=== PATIENT | female | born 1960 | race African-American/Black ===

== ENCOUNTER 2017-09-18 11:05 | Inpatient (IN) ==
[2017-09-21 12:22] VITALS: BP 150/79
== END 2017-09-21 14:42 | disposition home or self-care (01) | DRG 720 ==
LOC: N.ED 11:05 → N.EDINP 13:12 → SUATTDRO 13:12 → N.2E 15:40
PROVIDERS: ADMIT Internal Medicine Nephrology; ATTEND Hospitalist

== ENCOUNTER 2020-07-10 02:42 | Inpatient (IN) ==
[2020-07-10 03:16] LABS: Basophils % 0.4 % (0.0-0.8); Eosinophils # 0.2 10*3/uL (0.0-0.87); Eosinophils % 2.3 % (0.00-10.9); Hematocrit 36.4 VOL% (35.7-47.0); Hemoglobin 11.3 GM/DL (12.0-16.0); Immature Granulocytes % 0.4 %; Immature Granulocytes Absolute 0.04 #; Lymphocytes # 2.8 10*3/uL (1.4-4.0); Lymphocytes % 29.4 % (21.3-54.2); Mean Corpuscular Volume 97.8 FL (87-102); Mean Platelet Volume 10.4 FL (9.6-12.0); Monocytes % 6.4 % (1.7-12.7); Neutrophils % 61.1 % (38.7-73.9); Platelet Count 354 T/CUMM (130-400); Red Blood Count 3.72 MC/CUMM (3.8-5.5); Red Cell Distribution Width 15.6 % (9.3-17.3); White Blood Count 9.5 T/CUMM (4-12)
[2020-07-10 03:17] LABS: ABG Base Excess -1.6 MMOL/L (-2.5-2.5); ABG Oxygen Saturation 95.7 % (95-100); ABG PH 7.375 (7.35-7.45); ABG PO2 83.5 MM HG (80-95)
[2020-07-10] MEDS ORDERED: FUROSEMIDE 40 MG/4 ML VIAL IV STA (03:22)
[2020-07-10] MEDS ORDERED: methylPREDNISolone SOD SUC 125 MG/2 ML VIAL IV STA (03:23)
[2020-07-10 03:29] LABS: PT Patient Result 10.9 SECS (9.8-11.9)
[2020-07-10 03:43] LABS: Albumin 3.4 G/DL (3.4-5.0); Bilirubin,Total 0.9 MG/DL (0.2-1.0); Calcium 8.9 MG/DL (8.5-10.1); Osmolality,Calculated 279.5 MOS/KG (273-304); Potassium 3.6 MMOL/L (3.5-5.1); Total Protein 7.2 G/DL (6.4-8.2)
[2020-07-10] MEDS ORDERED: SODIUM CHLORIDE 0.9% 500 ML IV STA (03:46)
[2020-07-10] MEDS ORDERED: ALBUTEROL/IPRATROPIUM 3 ML NEB RESP TX STA (03:50)
[2020-07-10] MEDS ORDERED: LEVOFLOXACIN INJ 750 MG/150 ML PREMIX IV STA (03:50)
[2020-07-10] MEDS ORDERED: LABETALOL 20 MG/4 ML SYRINGE IV STA (04:39)
[2020-07-10] MEDS ORDERED: diphenhydrAMINE 50 MG/1 ML VIAL IV STA (04:48)
[2020-07-10] MEDS ORDERED: ONDANSETRON 4 MG/2 ML VIAL IV ONE (04:48)
[2020-07-10] MEDS ORDERED: hydrALAZINE 20 MG/1 ML VIAL IV PRN (05:20)
[2020-07-10] MEDS ORDERED: DEXTROSE 50% 25 GM/50 ML VIAL IV PRN (05:20)
[2020-07-10] MEDS ORDERED: NICOTINE 21 MG/24 HR PATCH TRANSDERM PRN (05:20)
[2020-07-10] MEDS ORDERED: guaiFENesin/DM ER 600-30 MG TABLET PO PRN (05:20)
[2020-07-10] MEDS ORDERED: GLUCAGON 1 MG VIAL IM PRN (05:20)
[2020-07-10] MEDS ORDERED: diphenhydrAMINE CAP 25 MG CAPSULE PO PRN (05:20)
[2020-07-10] MEDS ORDERED: ONDANSETRON 4 MG/2 ML VIAL IV PRN (05:20)
[2020-07-10] MEDS ORDERED: ENOXAPARIN 150 MG/ML SYRINGE SUBCUT STA (06:54)
[2020-07-10] MEDS ORDERED: ENOXAPARIN 30 MG/0.3 ML SYRINGE ONE (07:15)
[2020-07-10] MEDS ORDERED: ENOXAPARIN 120 MG/0.8 ML SYRINGE SUBCUT ONE (07:15)
[2020-07-10] MEDS: AZITHROMYCIN INJ 500 MG in SODIUM CHLORIDE 0.9% 250 ML IV SCH (07:25)
[2020-07-10] MEDS: FUROSEMIDE 40 MG/4 ML VIAL IV SCH ×2 (08:00→16:16)
[2020-07-10] MEDS: ALBUTEROL/IPRATROPIUM 3 ML NEB RESP TX SCH ×3 (08:40→19:55)
[2020-07-10] MEDS: PIPERACILLIN/TAZOBACTAM 3,375 MG in SODIUM CHLORIDE 0.9% 100 ML IV SCH ×2 (08:49→21:07)
[2020-07-10] MEDS ORDERED: ENOXAPARIN 40 MG/0.4 ML SYRINGE SUBCUT SCH (09:00)
[2020-07-10] MEDS: methylPREDNISolone SOD SUC 40 MG/1 ML VIAL IV SCH ×2 (09:03→21:07)
[2020-07-10] MEDS: INSULIN REGULAR 100 UNIT/ML SUBCUT SCH ×4 (09:03→22:22)
[2020-07-10] MEDS: MORPHINE 4 MG/1 ML VIAL IV PRN (10:06)
[2020-07-10] MEDS: GABAPENTIN 300 MG CAPSULE PO SCH ×2 (13:18→21:06)
[2020-07-10] MEDS: CYCLOBENZAPRINE 10 MG TABLET PO PRN (13:19)
[2020-07-10] MEDS: lisinopriL 10 MG TABLET PO SCH (13:36)
[2020-07-10] MEDS: ATAZANAVIR 300 MG PO SCH (16:09)
[2020-07-10] MEDS: CLINDAMYCIN INJ 600 MG in PREMIX 1 EACH IV SCH (16:16)
[2020-07-10] MEDS: PRIMAQUINE PHOSPHATE 26.3 MG TABLET PO SCH (17:01)
[2020-07-10] MEDS: ENOXAPARIN 40 MG/0.4 ML SYRINGE SUBCUT SCH (18:08)
[2020-07-10] MEDS: MONTELUKAST 10 MG TABLET PO SCH (21:06)
[2020-07-10] MEDS: ROSUVASTATIN 20 MG TABLET PO SCH (21:06)
[2020-07-11] MEDS: CLINDAMYCIN INJ 600 MG in PREMIX 1 EACH IV SCH ×5 (00:14→23:56)
[2020-07-11] MEDS: ALBUTEROL/IPRATROPIUM 3 ML NEB RESP TX SCH ×4 (01:34→20:12)
[2020-07-11] MEDS: PIPERACILLIN/TAZOBACTAM 3,375 MG in SODIUM CHLORIDE 0.9% 100 ML IV SCH ×3 (05:22→22:16)
[2020-07-11 06:12] LABS: Basophils % 0.1 % (0.0-0.8); Hematocrit 36.1 VOL% (35.7-47.0); Hemoglobin 11.6 GM/DL (12.0-16.0); Immature Granulocytes % 0.6 %; Immature Granulocytes Absolute 0.09 #; Lymphocytes # 0.9 10*3/uL (1.4-4.0); Lymphocytes % 5.8 % (21.3-54.2); Mean Corpuscular HGB Conc 32.1 GM/DL (32-36); Mean Corpuscular Volume 94.5 FL (87-102); Mean Platelet Volume 10.4 FL (9.6-12.0); Monocytes % 3.7 % (1.7-12.7); Neutrophils % 89.8 % (38.7-73.9); Platelet Count 336 T/CUMM (130-400); Red Blood Count 3.82 MC/CUMM (3.8-5.5); Red Cell Distribution Width 15.4 % (9.3-17.3); White Blood Count 15.9 T/CUMM (4-12)
[2020-07-11] MEDS ORDERED: PANTOPRAZOLE 40 MG TABLET PO SCH (06:30)
[2020-07-11 06:41] LABS: Calcium 8.9 MG/DL (8.5-10.1); Osmolality,Calculated 277.2 MOS/KG (273-304); Potassium 3.7 MMOL/L (3.5-5.1)
[2020-07-11] MEDS: AZITHROMYCIN INJ 500 MG in SODIUM CHLORIDE 0.9% 250 ML IV SCH (06:42)
[2020-07-11] MEDS: ATAZANAVIR 300 MG PO SCH (09:09)
[2020-07-11] MEDS: PRIMAQUINE PHOSPHATE 26.3 MG TABLET PO SCH (09:09)
[2020-07-11] MEDS: GABAPENTIN 300 MG CAPSULE PO SCH ×2 (09:09→20:45)
[2020-07-11] MEDS: methylPREDNISolone SOD SUC 40 MG/1 ML VIAL IV SCH ×2 (09:13→20:46)
[2020-07-11] MEDS: INSULIN REGULAR 100 UNIT/ML SUBCUT SCH ×4 (09:29→23:11)
[2020-07-11] MEDS: lisinopriL 10 MG TABLET PO SCH (09:32)
[2020-07-11] MEDS: PANTOPRAZOLE 40 MG VIAL IV SCH (11:23)
[2020-07-11] MEDS: FUROSEMIDE 40 MG/4 ML VIAL IV SCH ×2 (11:26→16:41)
[2020-07-11] MEDS: ENOXAPARIN 40 MG/0.4 ML SYRINGE SUBCUT SCH (17:46)
[2020-07-11] MEDS: ROSUVASTATIN 20 MG TABLET PO SCH (20:40)
[2020-07-11] MEDS: MONTELUKAST 10 MG TABLET PO SCH (20:45)
[2020-07-11] MEDS: INSULIN GLARGINE 100 UNIT/ML SUBCUT SCH (21:30)
[2020-07-12] MEDS: ALBUTEROL/IPRATROPIUM 3 ML NEB RESP TX SCH ×4 (01:00→20:24)
[2020-07-12] MEDS: MORPHINE 4 MG/1 ML VIAL IV PRN ×2 (02:29→09:15)
[2020-07-12] MEDS: AZITHROMYCIN INJ 500 MG in SODIUM CHLORIDE 0.9% 250 ML IV SCH (06:07)
[2020-07-12] MEDS: PIPERACILLIN/TAZOBACTAM 3,375 MG in SODIUM CHLORIDE 0.9% 100 ML IV SCH ×3 (06:10→21:57)
[2020-07-12 06:51] LABS: Basophils % 0.1 % (0.0-0.8); Hematocrit 36.2 VOL% (35.7-47.0); Hemoglobin 11.2 GM/DL (12.0-16.0); Immature Granulocytes Absolute 0.18 #; Lymphocytes # 0.8 10*3/uL (1.4-4.0); Lymphocytes % 4.6 % (21.3-54.2); Mean Corpuscular HGB Conc 30.9 GM/DL (32-36); Mean Corpuscular Volume 96.8 FL (87-102); Mean Platelet Volume 10.8 FL (9.6-12.0); Monocytes % 4.6 % (1.7-12.7); Neutrophils % 89.7 % (38.7-73.9); Platelet Count 365 T/CUMM (130-400); Red Blood Count 3.74 MC/CUMM (3.8-5.5); Red Cell Distribution Width 15.5 % (9.3-17.3); White Blood Count 17.2 T/CUMM (4-12)
[2020-07-12 07:04] LABS: Calcium 8.4 MG/DL (8.5-10.1); Osmolality,Calculated 288.7 MOS/KG (273-304); Potassium 3.7 MMOL/L (3.5-5.1)
[2020-07-12] MEDS: CLINDAMYCIN INJ 600 MG in PREMIX 1 EACH IV SCH ×2 (07:09→16:59)
[2020-07-12 07:31] LABS: Hypochromasia Slight; Lymphocytes 2 % (20-55); Platelet Estimate Adequate; Segmented Neutrophils 94 % (50-85); Total Cells Counted 100
[2020-07-12 07:32] LABS: Microcytosis Slight
[2020-07-12] MEDS: GABAPENTIN 300 MG CAPSULE PO SCH ×2 (09:12→21:51)
[2020-07-12] MEDS: PRIMAQUINE PHOSPHATE 26.3 MG TABLET PO SCH (09:13)
[2020-07-12] MEDS: ATAZANAVIR 300 MG PO SCH (09:13)
[2020-07-12] MEDS: lisinopriL 10 MG TABLET PO SCH (09:13)
[2020-07-12] MEDS: methylPREDNISolone SOD SUC 40 MG/1 ML VIAL IV SCH ×2 (09:18→21:53)
[2020-07-12] MEDS: FUROSEMIDE 40 MG/4 ML VIAL IV SCH ×2 (09:22→16:59)
[2020-07-12] MEDS: PANTOPRAZOLE 40 MG VIAL IV SCH (09:25)
[2020-07-12] MEDS: INSULIN REGULAR 100 UNIT/ML SUBCUT SCH ×4 (09:25→21:53)
[2020-07-12] MEDS: DOCUSATE SODIUM 100 MG CAPSULE PO SCH ×2 (17:00→21:52)
[2020-07-12] MEDS: ENOXAPARIN 40 MG/0.4 ML SYRINGE SUBCUT SCH (17:01)
[2020-07-12] MEDS: MONTELUKAST 10 MG TABLET PO SCH (21:51)
[2020-07-12] MEDS: guaiFENesin/DM ER 600-30 MG TABLET PO SCH (21:52)
[2020-07-12] MEDS: POLYETHYLENE GLYCOL POWDER 17 GM PACK PO SCH (21:52)
[2020-07-12] MEDS: SENNA 8.6 MG TABLET PO SCH (21:52)
[2020-07-12] MEDS: ROSUVASTATIN 20 MG TABLET PO SCH (21:52)
[2020-07-12] MEDS: INSULIN GLARGINE 100 UNIT/ML SUBCUT SCH (21:53)
[2020-07-13] MEDS: MORPHINE 4 MG/1 ML VIAL IV PRN (00:03)
[2020-07-13] MEDS: CLINDAMYCIN INJ 600 MG in PREMIX 1 EACH IV SCH ×3 (00:06→15:30)
[2020-07-13] MEDS: CYCLOBENZAPRINE 10 MG TABLET PO PRN (00:10)
[2020-07-13] MEDS: ALBUTEROL/IPRATROPIUM 3 ML NEB RESP TX SCH ×4 (03:41→19:44)
[2020-07-13] MEDS: PIPERACILLIN/TAZOBACTAM 3,375 MG in SODIUM CHLORIDE 0.9% 100 ML IV SCH ×3 (04:04→21:57)
[2020-07-13 05:15] LABS: Basophils % 0.1 % (0.0-0.8); Hematocrit 35.4 VOL% (35.7-47.0); Immature Granulocytes % 0.9 %; Immature Granulocytes Absolute 0.13 #; Lymphocytes # 0.9 10*3/uL (1.4-4.0); Lymphocytes % 6.4 % (21.3-54.2); Mean Corpuscular HGB Conc 31.1 GM/DL (32-36); Mean Corpuscular Volume 96.5 FL (87-102); Mean Platelet Volume 10.9 FL (9.6-12.0); Monocytes % 2.5 % (1.7-12.7); Neutrophils % 90.1 % (38.7-73.9); Platelet Count 337 T/CUMM (130-400); Red Blood Count 3.67 MC/CUMM (3.8-5.5); Red Cell Distribution Width 15.2 % (9.3-17.3)
[2020-07-13 05:33] LABS: Calcium 8.5 MG/DL (8.5-10.1); Osmolality,Calculated 287.8 MOS/KG (273-304); Potassium 3.7 MMOL/L (3.5-5.1)
[2020-07-13] MEDS: DOCUSATE SODIUM 100 MG CAPSULE PO SCH ×2 (08:39→21:17)
[2020-07-13] MEDS: GABAPENTIN 300 MG CAPSULE PO SCH ×2 (08:39→21:17)
[2020-07-13] MEDS: lisinopriL 10 MG TABLET PO SCH (08:39)
[2020-07-13] MEDS: guaiFENesin/DM ER 600-30 MG TABLET PO SCH ×2 (08:39→21:17)
[2020-07-13] MEDS: POLYETHYLENE GLYCOL POWDER 17 GM PACK PO SCH ×2 (08:39→21:16)
[2020-07-13] MEDS: methylPREDNISolone SOD SUC 40 MG/1 ML VIAL IV SCH ×2 (08:41→21:18)
[2020-07-13] MEDS: PANTOPRAZOLE 40 MG VIAL IV SCH (08:42)
[2020-07-13] MEDS: FUROSEMIDE 40 MG/4 ML VIAL IV SCH ×2 (08:43→15:27)
[2020-07-13] MEDS: ATAZANAVIR 300 MG PO SCH (08:47)
[2020-07-13] MEDS: INSULIN REGULAR 100 UNIT/ML SUBCUT SCH ×4 (08:47→21:18)
[2020-07-13] MEDS: PRIMAQUINE PHOSPHATE 26.3 MG TABLET PO SCH (09:34)
[2020-07-13] MEDS: AZITHROMYCIN INJ 500 MG in SODIUM CHLORIDE 0.9% 250 ML IV SCH (09:34)
[2020-07-13] MEDS: ENOXAPARIN 40 MG/0.4 ML SYRINGE SUBCUT SCH (17:44)
[2020-07-13] MEDS ORDERED: INSULIN GLARGINE 100 UNIT/ML SUBCUT SCH (21:00)
[2020-07-13] MEDS: MONTELUKAST 10 MG TABLET PO SCH (21:16)
[2020-07-13] MEDS: SENNA 8.6 MG TABLET PO SCH (21:17)
[2020-07-13] MEDS: ROSUVASTATIN 20 MG TABLET PO SCH (21:17)
[2020-07-14] MEDS: ALBUTEROL/IPRATROPIUM 3 ML NEB RESP TX SCH ×2 (00:23→07:56)
[2020-07-14] MEDS: CLINDAMYCIN INJ 600 MG in PREMIX 1 EACH IV SCH ×2 (01:57→07:43)
[2020-07-14] MEDS: PIPERACILLIN/TAZOBACTAM 3,375 MG in SODIUM CHLORIDE 0.9% 100 ML IV SCH (05:31)
[2020-07-14 05:49] LABS: Basophils % 0.2 % (0.0-0.8); Hematocrit 35.2 VOL% (35.7-47.0); Hemoglobin 11.4 GM/DL (12.0-16.0); Immature Granulocytes % 1.2 %; Immature Granulocytes Absolute 0.14 #; Lymphocytes # 1.1 10*3/uL (1.4-4.0); Lymphocytes % 9.1 % (21.3-54.2); Mean Corpuscular HGB Conc 32.4 GM/DL (32-36); Mean Corpuscular Volume 93.1 FL (87-102); Mean Platelet Volume 10.9 FL (9.6-12.0); Monocytes % 3.9 % (1.7-12.7); Neutrophils % 85.6 % (38.7-73.9); Platelet Count 320 T/CUMM (130-400); Red Blood Count 3.78 MC/CUMM (3.8-5.5); White Blood Count 11.8 T/CUMM (4-12)
[2020-07-14 06:01] LABS: Calcium 8.6 MG/DL (8.5-10.1); Osmolality,Calculated 290.8 MOS/KG (273-304); Potassium 3.5 MMOL/L (3.5-5.1)
[2020-07-14] MEDS: FUROSEMIDE 40 MG/4 ML VIAL IV SCH (07:39)
[2020-07-14] MEDS: INSULIN REGULAR 100 UNIT/ML SUBCUT SCH ×2 (07:43→11:29)
[2020-07-14] MEDS: CYCLOBENZAPRINE 10 MG TABLET PO PRN (07:46)
[2020-07-14] MEDS: ATAZANAVIR 300 MG PO SCH (08:56)
[2020-07-14] MEDS: GABAPENTIN 300 MG CAPSULE PO SCH (08:57)
[2020-07-14] MEDS: POLYETHYLENE GLYCOL POWDER 17 GM PACK PO SCH (08:57)
[2020-07-14] MEDS: DOCUSATE SODIUM 100 MG CAPSULE PO SCH (08:57)
[2020-07-14] MEDS: guaiFENesin/DM ER 600-30 MG TABLET PO SCH (08:57)
[2020-07-14] MEDS: lisinopriL 10 MG TABLET PO SCH (08:57)
[2020-07-14] MEDS ORDERED: PANTOPRAZOLE 40 MG TABLET PO SCH (09:00)
[2020-07-14] MEDS: PRIMAQUINE PHOSPHATE 26.3 MG TABLET PO SCH (09:03)
[2020-07-14] MEDS: AZITHROMYCIN INJ 500 MG in SODIUM CHLORIDE 0.9% 250 ML IV SCH (09:05)
[2020-07-14] MEDS: methylPREDNISolone SOD SUC 40 MG/1 ML VIAL IV SCH (09:10)
[2020-07-14 11:45] VITALS: BP 106/58
[2020-07-14 11:47] LABS: Alanine Aminotransferase 35 U/L (13-56); Alkaline Phosphatase 53 U/L (45-117); Aspartate Amino Transferase 19 U/L (0-37); Bilirubin,Direct < 0.100 MG/DL (0.0-0.20); Bilirubin,Indirect 0.3 MG/DL (0.0-1.0); Total Protein 6.6 G/DL (6.4-8.2)
[2020-07-14] MEDS ORDERED: glipiZIDE 5 MG TABLET PO SCH (16:30)
[2020-07-15 11:08] LABS: Fungitell Quantitative Value < 31 pg/mL (<60 pg/mL)
== END 2020-07-14 14:01 | disposition home health service (06) | DRG 892 ==
LOC: EDBD → EDUNIT# → N.ED 02:42 → SUATTDRO 05:20 → N.EDINP 05:20 → N.TELES 10:34
PROVIDERS: ADMIT Internal Medicine; ATTEND Internal Medicine

== ENCOUNTER 2020-10-15 07:36 | Observation (INO) ==
[2020-10-15] MEDS ORDERED: MORPHINE 2 MG/1 ML SYRINGE IV ONE (08:09)
[2020-10-15] MEDS ORDERED: ONDANSETRON 4 MG/2 ML VIAL IV ONE (08:09)
[2020-10-15 08:32] LABS: Basophils % 0.5 % (0.0-0.8); Eosinophils # 0.2 10*3/uL (0.0-0.87); Eosinophils % 2.6 % (0.00-10.9); Hematocrit 35.6 VOL% (35.7-47.0); Hemoglobin 11.2 GM/DL (12.0-16.0); Immature Granulocytes % 0.3 %; Immature Granulocytes Absolute 0.02 #; Lymphocytes # 2.2 10*3/uL (1.4-4.0); Lymphocytes % 36.9 % (21.3-54.2); Mean Corpuscular HGB Conc 31.5 GM/DL (32-36); Mean Platelet Volume 11.2 FL (9.6-12.0); Neutrophils % 51.7 % (38.7-73.9); Platelet Count 320 T/CUMM (130-400); Red Blood Count 3.67 MC/CUMM (3.8-5.5); Red Cell Distribution Width 13.8 % (9.3-17.3); White Blood Count 5.9 T/CUMM (4-12)
[2020-10-15 08:40] LABS: INR 0.9; PT Patient Result 10.6 SECS (10.5-12.0)
[2020-10-15 08:46] LABS: Albumin 3.6 G/DL (3.4-5.0); Bilirubin,Total 1.9 MG/DL (0.20-1.00); Calcium 9.2 MG/DL (8.5-10.1); Osmolality,Calculated 279.5 MOS/KG (273-304); Potassium 3.5 MMOL/L (3.5-5.1); Total Protein 7.5 G/DL (6.4-8.2)
[2020-10-15] MEDS ORDERED: ASPIRIN 325 MG TABLET PO STA (09:26)
[2020-10-15] MEDS ORDERED: DEXTROSE 50% 25 GM/50 ML VIAL IV PRN ×2 (10:47)
[2020-10-15] MEDS ORDERED: ACETAMINOPHEN 325 MG TABLET PO PRN (10:47)
[2020-10-15] MEDS ORDERED: CALCIUM CARBONATE CHEW 500 MG TABLET PO PRN (10:47)
[2020-10-15] MEDS ORDERED: ONDANSETRON 4 MG/2 ML VIAL IV PRN (10:47)
[2020-10-15] MEDS ORDERED: ZALEPLON 5 MG CAPSULE PO PRN (10:47)
[2020-10-15] MEDS ORDERED: GLUCAGON 1 MG VIAL IM PRN ×2 (10:47)
[2020-10-15] MEDS ORDERED: MAGNESIUM SULF RIDER 2 GM/50 ML PREMIX IV PRN (12:17)
[2020-10-15] MEDS ORDERED: POTASSIUM CHLORIDE 20 MEQ TABLET PO ONE (12:17)
[2020-10-15] MEDS ORDERED: MAGNESIUM SULF RIDER 4 GM/100 ML PREMIX IV PRN (12:17)
[2020-10-15] MEDS: INSULIN LISPRO 100 UNIT/ML SUBCUT SCH ×3 (12:40→21:20)
[2020-10-16 06:58] LABS: Calcium 8.7 MG/DL (8.5-10.1); Osmolality,Calculated 277.7 MOS/KG (273-304); Potassium 4.4 MMOL/L (3.5-5.1)
[2020-10-16] MEDS: INSULIN LISPRO 100 UNIT/ML SUBCUT SCH (07:50)
[2020-10-16] MEDS ORDERED: PANTOPRAZOLE 40 MG TABLET PO SCH (09:00)
[2020-10-16] MEDS ORDERED: ASPIRIN EC 81 MG TABLET PO SCH (09:57)
[2020-10-16] MEDS ORDERED: LISINOPRIL/HCTZ 20-25 MG TABLET PO SCH (10:00)
[2020-10-16] MEDS ORDERED: ALBUTEROL 2.5 MG/3 ML NEB RESP TX PRN (15:00)
[2020-10-16 17:15] VITALS: BP 132/78
[2020-10-16] MEDS ORDERED: GABAPENTIN 300 MG CAPSULE PO SCH (21:00)
[2020-10-16] MEDS ORDERED: CITALOPRAM 40 MG TABLET PO SCH (21:00)
[2020-10-16] MEDS ORDERED: MONTELUKAST 10 MG TABLET PO SCH (21:00)
[2020-10-16] MEDS ORDERED: ELVITEG COB EMTRI TENOF ALAFEN PO SCH (21:00)
[2020-10-16] MEDS ORDERED: NON-FORMULARY MEDICATION (Fluticasone Propion-Salmeterol [Advair Hfa] 115-21 mcg/actuation INH SCH (21:00)
[2020-10-16] MEDS ORDERED: ROSUVASTATIN 20 MG TABLET PO SCH (21:00)
[2020-10-17] MEDS ORDERED: glyBURIDE 5 MG TABLET PO SCH (08:00)
[2020-10-17] MEDS ORDERED: ATAZANAVIR 300 MG PO SCH (09:00)
== END 2020-10-16 18:01 | disposition home or self-care (01) ==
LOC: N.ED 07:36 → N.EDINP 07:36 → SUATTDRO 10:23 → N.EDINP 10-16 18:00
PROVIDERS: ADMIT Internal Medicine; ATTEND Internal Medicine Geriatric Medicine